=== PATIENT | female | born 1965 | race American Indian/Alaskan Native ===

== ENCOUNTER 2018-09-30 10:33 | Emergency (ER) | payer OTHER ==
[2018-09-30 10:35] VITALS: BMI 39.8
--- NOTE | 2018-09-30 11:10 | C.PDOC ---
History Of Present Illness 52 year old female with PMHx of Rheumatoid Arthritis, HTN and brain aneurysm (10 yrs ago) presents to the ED complaining of left upper back pain that radiates into her chest for 4 days. Reports at first pain felt like a pulled muscle pain in her upper back that later radiated over her left shoulder and to her chest. States she has been taking Tylenol and Advil as well as applying heat and cold compresses with no relief. Associated symptoms include shortness of breath on exertion, nausea. Denies abdominal pain, vomiting, numbness, syncope, diaphoresis or swelling. Reports she was diagnosed with RA one month ago and started on Methotrexate. Time Seen by Provider: 09/30/18 10:42 Chief Complaint (Nursing): Chest Pain History Per: Patient History/Exam Limitations: no limitations Onset/Duration Of Symptoms: Days (4) Current Symptoms Are (Timing): Still Present Quality: "Pain" Associated Symptoms: Nausea Past Medical History Reviewed: Historical Data, Nursing Documentation, Vital Signs Vital Signs: Last Vital Signs Temp 98 F 09/30/18 10:36 Pulse 88 09/30/18 10:36 Resp 18 09/30/18 10:36 BP 143/88 09/30/18 10:36 Pulse Ox 99 09/30/18 10:36 - Medical History PMH: HTN, Rheumatoid Arthritis Other PMH: Brain aneurysm (10 yrs ago) Surgical History: Back Surgery Family History: States: No Known Family Hx - Social History Hx Alcohol Use: Yes Hx Substance Use: No - Immunization History Hx Tetanus Toxoid Vaccination: No Hx Influenza Vaccination: No Hx Pneumococcal Vaccination: No Review Of Systems Constitutional: Negative for: Sweats Cardiovascular: Positive for: Chest Pain. Negative for: Palpitations, Light Headedness Respiratory: Positive for: Shortness of Breath Gastrointestinal: Positive for: Nausea. Negative for: Vomiting, Abdominal Pain Musculoskeletal: Positive for: Neck Pain, Arm Pain, Back Pain Neurological: Positive for: Weakness (left arm ). Negative for: Other (syncope ) Physical Exam - Physical Exam Appears: Non-toxic, No Acute Distress, Other (Obese ) Skin: Warm, Dry, No Rash Head: Normacephalic Eye(s): bilateral: Normal Inspection Oral Mucosa: Moist Neck: Normal ROM, Supple Chest: Symmetrical, Tenderness (anterior upper left chest wall tenderness ), No Ecchymosis, No Subcutaneous Emphysema Cardiovascular: Rhythm Regular, No Murmur Respiratory: Normal Breath Sounds, No Rales, No Rhonchi, No Wheezing Gastrointestinal/Abdominal: Soft, No Tenderness Back: Normal Inspection, No Vertebral Tenderness, Muscle Spasm (Left upper trapezius ), Paraspinal Tenderness, Other (Left upper trapezius tenderness ) Extremity: No Pedal Edema Pulses: Left Radial: Normal, Right Radial: Normal Neurological/Psych: Oriented x3, Normal Speech Gait: Steady ED Course And Treatment - Laboratory Results Result Diagrams: 09/30/18 11:15 09/30/18 11:15 Lab Interpretation: No Acute Changes ECG: Interpreted By Me, Viewed By Me ECG Rhythm: Sinus Rhythm ECG Interpretation: No Acute Changes Rate From EC O2 Sat by Pulse Oximetry: 99 (RA) Pulse Ox Interpretation: Normal - Other Rad CXR X-Ray: Viewed By Me, Read By Radiologist Interpretation: Accession No. : [id number]. Patient Name / ID : BRYAN CHIN / [id number]. Exam Date : 09/30/2018 11:15:22 ( Approved ). Study Comment : Sex / Age : F / 52Y. Creator : Nba Romeo MD. Dictator : Nba Romeo MD. Sign Erector : Occupational Therapist : Nba Romeo MD. Approver2 : Report Date : 09/30/2018 11:57:13. My Comment : . Date of service: 09/30/2018. HISTORY: chest pain. COMPARISON: No prior. TECHNIQUE: Chest PA and lateral views. FINDINGS: LUNGS: No active pulmonary disease. PLEURA: No significant pleural effusion identified. No pneumothorax apparent. CARDIOVASCULAR: No aortic atherosclerotic calcification present. Normal cardiac size. No pulmonary vascular congestion. OSSEOUS STRUCTURES: No significant abnormalities. VISUALIZED UPPER ABDOMEN: Normal. OTHER FINDINGS: None. IMPRESSION: No active disease. Medical Decision Making Medical Decision Making: Impression: arm and chest pain Plan: - EKG - Labs - CXR - Toradol 30mg IVP Progress: All labs reviewed and unremarkable, negative troponin and cardiac enzymes, coags WNL. Based on this negative findings and no changes on EKG very low suspicion for ACS. CXR shows no active disease Patient re-evaluated and she continues to have pain to her neck and shoulder. Ordered Valium and lidoderm patch On second re-eval, she stats the pain is improving but still has pain when moving the left arm. Ordered IV Decadron On third re-eval, the patient is sitting upright and now reports feeling better states she feels comfortable going home Rx given and patient advised to follow up with PCP Disposition Counseled Patient/Family Regarding: Studies Performed, Diagnosis, Need For Followup, Rx Given - Disposition Referrals: Juancho Holder MD [Staff Provider] - Disposition: HOME/ ROUTINE Disposition Time: 13:30 Condition: IMPROVED Additional Instructions: You can apply heat to area 20 minutes 2-3 times a day Apply gel to affected area 2-3 times a day as needed Take muscle relaxant as needed Follow up with your doctor Prescriptions: Cyclobenzaprine [Cyclobenzaprine HCl] 10 mg PO TID #30 tab Diclofenac Sodium [Voltaren] 100 gm TP Q8 #1 gel..gram. Instructions: Muscle Strain (DC) Forms: [email or web address] (Italian) - POA Present On Arrival: None - Clinical Impression Clinical Impression: Shoulder pain, left, Muscle strain, Chest wall pain - PA / SKILLS TRAINER / Resident Statement MD/DO has reviewed & agrees with the documentation as recorded. - Scribe Statement The provider has reviewed the documentation as recorded by the Paulibza Leung All medical record entries made by the Stan were at my direction and personally dictated by me. I have reviewed the chart and agree that the record accurately reflects my personal performance of the history, physical exam, medical decision making, and the department course for this patient. I have also personally directed, reviewed, and agree with the discharge instructions and di sposition.
[2018-09-30 11:21] LABS: BASO # 0.1 K/uL (0.0-0.2); EOS # 0.3 K/uL (0.0-0.7); EOS % 3.8 % (0.0-4.0); HEMOGLOBIN 12.6 g/dL (11.0-16.0); MEAN CELL VOLUME 95.9 fL (81.0-99.0); MEAN CORPUSCULAR HEMOGLOBIN 32.4 pg (27.0-31.0); MEAN CORPUSCULAR HGB CONC 33.8 g/dL (33.0-37.0); MEAN PLATELET VOLUME 8.7 fL (7.2-11.7); MONO # 0.7 K/uL (0.0-0.8); MONO % 9.4 % (0.0-10.0); NEUT # 4.1 K/uL (1.8-7.0); NEUT % 57.8 % (50.0-75.0); NRBC % 0.1 % (0.0-2.0); RBC 3.88 Mil/uL (3.80-5.20); RED CELL DISTRIBUTION WIDTH 13.8 % (11.5-14.5); WHITE BLOOD COUNT 7.1 K/uL (4.8-10.8)
[2018-09-30 11:31] LABS: ALB/GLOB RATIO 1.1 (1.0-2.1); ALBUMIN 4.1 g/dL (3.5-5.0); AST/SGOT 19 U/L (14-36); BLOOD UREA NITROGEN 12 mg/dL (7-17); CALCIUM 9.3 mg/dl (8.6-10.4); GFR NON-AFRICAN AMERICAN > 60; HDL CHOLESTEROL 39 mg/dL (30-70)
[2018-09-30 11:41] LABS: ALT/SGPT 31 U/L (9-52)
[2018-09-30 11:42] LABS: LDL CHOLESTEROL 99 mg/dL (0-129)
[2018-09-30] MEDS ORDERED: Lidocaine 5% Patch TD STA (11:42)
[2018-09-30 11:43] LABS: B-TYPE NATRIURETIC PEPTIDE 48.1 pg/mL (0-900); CK-MB 0.86 ng/mL (0.0-3.38)
[2018-09-30 11:46] LABS: INR 1.1; PROTHROMBIN TIME 11.7 SECONDS (9.7-12.2)
[2018-09-30] MEDS ORDERED: Lidocaine 5% Patch TD ONE (11:48)
--- NOTE | 2018-09-30 12:00 | RAD ---
Date of service: 09/30/2018 HISTORY: chest pain COMPARISON: No prior. TECHNIQUE: Chest PA and lateral views FINDINGS: LUNGS: No active pulmonary disease. PLEURA: No significant pleural effusion identified. No pneumothorax apparent. CARDIOVASCULAR: No aortic atherosclerotic calcification present. Normal cardiac size. No pulmonary vascular congestion. OSSEOUS STRUCTURES: No significant abnormalities. VISUALIZED UPPER ABDOMEN: Normal. OTHER FINDINGS: None. IMPRESSION: No active disease.
[2018-09-30] MEDS ORDERED: Dexamethasone 4 mg/1 ml IVP STA (12:58)
[2018-09-30] MEDS ORDERED: Dexamethasone 4 mg/1 ml ONE (13:13)
[2018-09-30 13:46] VITALS: BP 115/55; PULSE 73; RESP 20; TEMP 97.6
[2018-09-30 15:51] VITALS: O2SAT 99
== END 2018-09-30 13:46 | disposition home or self-care (01) ==
LOC: C.ER 10:33
DX: R07.89 Other chest pain (principal); M25.512 Pain in left shoulder; T14.8XXA Other injury of unspecified body region, initial encounter; X58.XXXA Exposure to other specified factors, initial encounter; I10 Essential (primary) hypertension; F17.210 Nicotine dependence, cigarettes, uncomplicated
CPT/HCPCS: 71046; 80053; 80061; 83880; 84484; 85025; 85610; 85730; 96374; 96375; 99284; J1100; J1885